=== PATIENT | female | born 1940 | race Caucasian/White ===

== ENCOUNTER 2016-07-10 06:13 | Day surgery (SDC) | payer MEDICARE, BC ==
[~2016-07-10] VITALS: Ht 160 cm; Wt 66.0 kg
--- NOTE | ~2016-07-10 | OR ---
PATIENT'S NAME: MARTIN MILLS [facility] AGE: 76 Y [address] 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 Mucous retention cyst/mucocele, left vallecula. 2. Dysphagia. POSTOPERATIVE DIAGNOSES: 1. Mucous retention cyst/mucocele, left vallecula. 2. Dysphagia. OPERATIONS/PROCEDURES PERFORMED: 1. Direct laryngoscopy with marsupialization of the laryngeal vallecular mucocele. 2. Rigid esophagoscopy. ANESTHESIA: General endotracheal anesthesia. ESTIMATED BLOOD LOSS: Minimal. COMPLICATIONS: None. DESCRIPTION OF PROCEDURE: The patient was taken to the operating room, laid in supine position, and underwent general endotracheal anesthesia. The table was rotated to 90 degrees. A right shoulder roll placed. Head was placed in a sniffing position. Laryngoscope was inserted within the oral cavity directly underneath the pharyngeal wall. The base of tongue was visualized. The patient had a large mucocele within the left vallecula. The epiglottis was noted to be within normal limits. Epiglottis was lifted anteriorly. The cords were visualized and noted to be normal. Laryngoscope was inserted within the right piriform sinus. This was normal. Was placed again underneath the vallecula, placed within the left piriform sinus. Again this was normal. Base of tongue was visualized and noted to be within normal limits. The patient had a large mucocele along the vallecula on the left. This was marsupialized with removal of a large amount of thick mucoid purulent material. The biopsy was sent. The laryngoscope was removed. Rigid esophagoscope was inserted and directed down the right lateral pharyngeal wall. It was directed into the right piriform sinus. Passed through the cricopharyngeus down to 25 cm under direct vision. It was slowly withdrawn. PATIENT'S NAME: MARTIN MILLS [facility] AGE: 76 Y [address] ROOM: [place] [address] LOCATION: [facility] ADMIT DATE: 07/10/2016 OR/Procedure Report DISCHARGE DATE: 07/10/2016 FAMILY PHYSICIAN: Donny Allen MD ATTENDING PHYSICIAN: Xavier Tucker V The patient had some small esophageal varices. No evidence of mass, lesion, and no stricture. The cricopharyngeus was normal. Esophagoscope was removed. The patient was aroused, extubated, and discharged from the operating room to the recovery room in satisfactory condition. XAVIER TUCKER MD TVC/modl /[id number] d: 07/10/162036 t: 07/14/16 0812, OPERATIVE SUMMARY
[~2016-07-10 06:13] MED LIST: BILBERRY80 MG PO; CURCUMIN PO; IRON18 MG PO; MAGNESIUM250 MG PO; MULTI FOR HER1 EAC2 PO; NONI PO; PROBIOTIC1 EAC1 PO; SUPER B-50 COM1 EACH PO
--- NOTE | 2016-07-10 16:24 | NUR ---
Significant Event: Pt up from PACu at 1030. AOx3. VSS. No visible incision. Horseness improving. States he doesn't have pain, just scratchy throat. Taking liquids very well. Will advance diet to full liquid. She had preop dysphagia. Up with SBA. Voids without difficulty. No nausea. No straws given. Possible dc tomorrow Follow up:
[2016-07-10] MEDS ORDERED: TYLENOL WITH C1 EACH PO (17:16)
== END 2016-07-10 17:39 | disposition disaster alternative care site (69) ==
LOC: GMSU 06:13 → GSDC 06:13 → G3N 10:25 → GSDC 17:39
PROC: 0CBS8ZX Excision of Larynx, Via Natural or Artificial Opening Endoscopic, Diagnostic (ICD-10-PCS; principal; 2016-07-10)
PROC: 0DJ08ZZ Inspection of Upper Intestinal Tract, Via Natural or Artificial Opening Endoscopic (ICD-10-PCS; 2016-07-10)
DX: J38.7 Other diseases of larynx (principal); R13.10 Dysphagia, unspecified; I85.00 Esophageal varices without bleeding; R49.0 Dysphonia; Z85.3 Personal history of malignant neoplasm of breast; Z88.8 Allergy status to other drugs, medicaments and biological substances; Z77.22 Contact with and (suspected) exposure to environmental tobacco smoke (acute) (chronic); Z98.49 Cataract extraction status, unspecified eye; Z98.890 Other specified postprocedural states; Z01.818 Encounter for other preprocedural examination; Z79.899 Other long term (current) drug therapy
CPT/HCPCS: J0171; J2001; J7030